=== PATIENT | female | born 1995 | race Caucasian/White ===

== ENCOUNTER → 2017-12-13 06:58 | Outpatient (CLI) | payer BC, SELFPAY ==
--- NOTE | 2017-12-13 09:59 | NEURO ---
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 The symptoms do awaken her from sleep and has symptoms with driving as well. She describes pain in the base of her thumbs bilaterally worse on the right side. The symptoms have improved since she is no longer working. Bilateral upper extremity sensory and motor nerve conduction study is performed. The median motor and sensory, ulnar motor and sensory and radial sensory responses are normal. The median and ulnar F-wave latencies are symmetrically preserved. Right upper extremity needle electromyography was performed. Muscles evaluated included the first dorsal interosseous, abductor pollicis brevis, brachioradialis, biceps, and triceps muscles as well as the deltoid muscles. Goals demonstrated normal insertional activity with absence of pathologic spontaneous activity. Motor unit potential recruitment pattern and amplitude was normal in all muscles tested. Impression: Normal electrophysiologic study of the upper extremities. There is no evidence of carpal tunnel, mononeuropathy or radiculopathy.
== END ==
PROVIDERS: Family Provider Family Medicine; PCP Family Medicine; Visit Provider Physician Assistant
DX: R20.2 Paresthesia of skin (principal)
CPT/HCPCS: 95886; 95912

== ENCOUNTER → 2019-09-13 16:24 | Outpatient (CLI) | payer OTHER, MEDICAID, SELFPAY ==
[2016-02-11 15:55] VITALS: BMI 29.0
[2019-09-13 17:35] LABS: Absolute Lymphocyte Count 2.73 X10^3/uL (0.83-4.51); Absolute Neutrophil Count 6.5 X10^3/uL (2.0-7.7); Basophil# 0.03 X10^3/uL; Basophil% 0.3 % (0-1); Eosinophil# 0.17 X10^3/uL; Eosinophils% 1.7 % (0-5); Hematocrit 38.4 % (37-47); Hemoglobin 12.5 g/dL (12.0-15.0); Lymphocyte # 2.73 X10^3/ul (4.0); Lymphocyte % 27.1 % (19-41); Mean Corp Hgb Conc 32.6 g/dL (32-36); Mean Corpuscular Hgb 26.7 pg (27.0-32.0); Mean Corpuscular Volume 82.1 fL (81-99); Mean Platelet Vol. 9.2 fl (6.2-12.0); Monocyte# 0.58 X10^3/uL; Monocyte% 5.8 % (0-10); NRBC Flagged by Analyzer 0 % (0-5); Neutrophil % 64.6 % (47-70); Platelet Count 312 K/mm3 (150-450); RBC Distribution Width SD 41.1 fl (35.1-43.9); Red Blood Count 4.68 M/mm3 (4.2-5.4); White Blood Count 10.1 K/mm3 (4.4-11.0)
[2019-09-13 17:40] LABS: Color, Urine Yellow (Yellow); Glucose, Dipstick Normal (Normal); Ketone-Dipstick Negative (Negative); Leukocyte Esterase-Dipstick Negative /ul (Negative); Nitrite-Dipstick Negative (Negative); Occult Blood-Urine Negative /ul (Negative); Protein-Dipstick Negative (Negative); Urine Bilirubin Dipstick Negative (Negative); Urine Clarity Clear (Clear); Urine Urobilinogen Normal (Normal)
[2019-09-13 17:49] LABS: Amphetamine Urine VISTA NEGATIVE (<1000 ng/mL); Barbiturate Urine VISTA NEGATIVE (< 200 ng/mL); Benzodiazepine Urine VISTA NEGATIVE (< 200 ng/mL); Cocaine Urine VISTA NEGATIVE (< 300 ng/mL); Ecstacy Urine VISTA NEGATIVE (< 500 ng/mL); Methadone Urine VISTA NEGATIVE (< 300 ng/mL); PCP Urine VISTA NEGATIVE (< 25 ng/mL); THC Urine VISTA NEGATIVE (< 50 ng/mL); Vista UDS pH Range 6
[2019-09-13 18:40] LABS: Thyroid Stim Hormone (TSH) 2.92 uIU/mL (0.358-3.74)
[2019-09-14 09:14] LABS: HIV - WCH Non-Reactive (Nonreactive); Hepatitis B Surface Antigen Non-Reactive (Nonreactive); Hepatitis C Antibody Non-Reactive (Nonreactive)
[2019-09-20 03:26] LABS: Prenatal RPR NONREACTIVE (NONREACTIVE)
== END ==
PROVIDERS: PCP Family Medicine; Visit Provider Obstetrics & Gynecology
DX: Z34.81 Encounter for supervision of other normal pregnancy, first trimester (principal)
CPT/HCPCS: 36415; 80307; 81002; 84443; 85025; 86703; 86762; 86803; 87340

== ENCOUNTER → 2020-01-17 15:21 | Outpatient (CLI) | payer MEDICAID, SELFPAY ==
[2016-02-11 15:55] VITALS: BMI 29.0
[2020-01-17 16:07] LABS: Hematocrit 36.1 % (37-47); Hemoglobin 11.8 g/dL (12.0-15.0); Mean Corp Hgb Conc 32.7 g/dL (32-36); Mean Corpuscular Hgb 28.3 pg (27.0-32.0); Mean Corpuscular Volume 86.6 fL (81-99); Mean Platelet Vol. 10.7 fl (6.2-12.0); Platelet Count 271 K/mm3 (150-450); RBC Distribution Width CV 13.4 % (11.6-14.6); RBC Distribution Width SD 41.8 fl (35.1-43.9); Red Blood Count 4.17 M/mm3 (4.2-5.4); White Blood Count 10.6 K/mm3 (4.4-11.0)
[2020-01-17 16:18] LABS: Glucose Challenge Gest 1H 50g 164 mg/dL (70-140)
== END ==
PROVIDERS: PCP Family Medicine; Visit Provider Obstetrics & Gynecology
DX: Z34.83 Encounter for supervision of other normal pregnancy, third trimester (principal)
CPT/HCPCS: 36415; 82950; 85027; 86850

== ENCOUNTER → 2020-01-23 09:53 | Outpatient (CLI) | payer MEDICAID, SELFPAY ==
[2020-01-23 12:12] LABS: Glucose GTT-Gestational 1 Hr 170 mg/dL (<190)
[2020-01-23 12:12] LABS: Glucose GTT-Gestation. Fasting 73 mg/dL (<105)
[2020-01-23 13:42] LABS: Glucose GTT-Gestational 3 Hr 153 L (<145)
[2020-01-23 14:03] LABS: Glucose GTT-Gestational 2 Hr 145 mg/dL (<165)
== END ==
PROVIDERS: Referring Provider Obstetrics & Gynecology; Visit Provider Obstetrics & Gynecology
DX: O24.912 Unspecified diabetes mellitus in pregnancy, second trimester (principal); Z3A.00 Weeks of gestation of pregnancy not specified
CPT/HCPCS: 36415; 82951; 82952

== ENCOUNTER 2020-03-07 16:35 | Outpatient (CLI) | payer MEDICAID, SELFPAY ==
[2016-02-11 15:55] VITALS: BMI 29.0
[2020-03-07 16:52] VITALS: BMI 32.5
--- NOTE | 2020-03-14 08:34 | OB.TRI.NOTE ---
- Problem List (1) 35 weeks gestation of Status: Acute (2) Decreased movement Status: Acute Qualifiers: Trimester: third trimester History of Present Illness Date of Service: 03/07/20 Was patient seen by the physician?: No Reason For Visit: DECREASED MOVEMENT Final MARCI: 04/06/20 Gestational age: 35 Weeks and 5 Days History of Present Illness: 24yo G1 @ 35 5/7wga with c/o decreased movement and spotting x 1. Allergies No Known Allergies Allergy (Verified 02/11/16 16:45) Physical Exam Vitals: vss NST - FHR Rate Baby A Baseline: 130 Variability:: Moderate Accelerations:: None Decelerations:: None NST Reactive:: Yes FHR Category:: Category I Uterine Activity:: 0/10 Impression/Plan Reactive NST, Cat I FHR -No bleeding or spotting per RN during observation period and pt reports improved movement -d/c home with FM precautions.
== END 2020-03-07 17:30 | disposition home or self-care (01) ==
PROVIDERS: Referring Provider Obstetrics & Gynecology; Visit Provider Obstetrics & Gynecology
DX: O36.8130 Decreased fetal movements, third trimester, not applicable or unspecified (principal); Z3A.35 35 weeks gestation of pregnancy
CPT/HCPCS: 59025; 59050; 99218; G0378

== ENCOUNTER → 2020-03-13 17:35 | Outpatient (CLI) | payer MEDICAID, SELFPAY ==
[2020-03-07 16:52] VITALS: BMI 32.5
== END ==
PROVIDERS: Referring Provider Obstetrics & Gynecology; Visit Provider Obstetrics & Gynecology
DX: Z36.85 Encounter for antenatal screening for Streptococcus B (principal)
CPT/HCPCS: 87077; 87081; 87186

== ENCOUNTER 2020-03-16 22:45 | Outpatient (CLI) | payer MEDICAID, SELFPAY ==
[2020-03-16 23:01] VITALS: BP 129/80; PULSE 85
[2020-03-16 23:04] VITALS: BMI 33.9
--- NOTE | 2020-03-17 05:40 | OB.TRI.NOTE ---
- Problem List (1) 37 weeks gestation of Status: Acute (2) Labor, false ([place]), antepartum Status: Acute History of Present Illness Date of Service: 03/16/20 Was patient seen by the physician?: No Reason For Visit: R/O LABOR Date of Service: 03/16/20 Final MARCI: 04/06/20 Final MARCI Source: US <20 weeks Gestational age: 37 Weeks and 1 Days Allergies No Known Allergies Allergy (Verified 03/16/20 23:20) Review of Systems Constitutional: Denies: Chills, Fever, Weight Change HEENT: Denies: Head Aches, Sinus Congestion, Sinus Drainage Cardiovascular: Denies: Chest Pain, Palpitations Respiratory: Denies: Cough, Shortness of breath at rest, Sputum production Gastrointestinal: Denies: Abdominal Pain, Nausea, Vomiting Genitourinary: Denies: Dysuria Musculoskeletal: Denies: Joint Pain, Joint Tenderness Skin: Denies: Rash, Wounds Neurological: Denies: Numbness, Tingling, Focal weakness Psychiatric: Denies: Anxiety, Depression, Homicidal Ideations, Suicidal Ideations Hematologic/ Lymphatic: Denies: Easy Bruising, Easy Bleeding Physical Exam Vitals: Vital Signs Pulse BP 85 129/80 H 03/16/20 23:01 03/16/20 23:01 General: Alert, Oriented x3, No apparent distress HEENT: Atraumatic, Normocephalic. 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 Negative for: Vulvar lesions Estimated gestational size: Appropriate for gestational size Presentation: Cephalic Cervix Dilation (cm): 2 Station: -3 Effacement (%): 50 NST - FHR Rate Baby A Baseline: 120 Variability:: Moderate Accelerations:: 15 x 15 Decelerations:: None NST Reactive:: Yes FHR Category:: Category I Uterine Activity:: 2 contractions in 71m Impression/Plan A/P: at 37 weeks gestation here to rule out labor On arrival SVE 2/50/-3 NST Category I Observed for 71m and only 2 UC noted States she would like to go home to await active labor To return if active labor begins or follow up in office as scheduled To discharge home
== END 2020-03-17 01:30 | disposition home or self-care (01) ==
LOC: WPOUT 22:47 → WP 22:47
PROVIDERS: Referring Provider Obstetrics & Gynecology; Visit Provider Obstetrics & Gynecology
DX: O47.03 False labor before 37 completed weeks of gestation, third trimester (principal); Z3A.37 37 weeks gestation of pregnancy
CPT/HCPCS: 59025; 59050; 99218; G0378

== ENCOUNTER 2020-03-27 22:36 | Outpatient (CLI) | payer MEDICAID, SELFPAY ==
[2020-03-27 23:04] VITALS: TEMP 36.2
[2020-03-27 23:05] VITALS: BP 136/86; PULSE 88
[2020-03-27 23:07] VITALS: BMI 33.2
[2020-03-27 23:19] LABS: Mucous, Urine 0 SEEN /hpf (<or=2+)
[2020-03-27 23:20] LABS: Color, Urine Yellow (Yellow); Glucose, Dipstick Normal (Normal); Ketone-Dipstick Negative (Negative); Leukocyte Esterase-Dipstick 500 /ul (Negative); Nitrite-Dipstick Negative (Negative); Occult Blood-Urine 10 /ul (Negative); Protein-Dipstick 15 mg/dl (Negative); Urine Bilirubin Dipstick Negative (Negative); Urine Clarity Sl. Cloudy (Clear); Urine Urobilinogen 1 mg/dl (Normal); Urine pH 6.5 (5.0 - 8.0)
[2020-03-27 23:41] LABS: Bacteria RARE /hpf (None Seen); Red Blood Cells-Urine 5-10 SEEN /hpf (0-5); Squamous Epithelial Cells - UA 0-5 SEEN /hpf (5-10); White Blood Cells 10-25 SEEN /hpf (0-5)
[2020-03-28 01:05] VITALS: BP 130/83; PULSE 78; TEMP 36.3
--- NOTE | 2020-03-29 11:44 | OB.TRI.NOTE ---
<Batool Butt - Last Filed: 03/29/20 11:44> - Problem List (1) 38 weeks gestation of Status: Acute (2) Labor, false ([place]), antepartum Status: Acute History of Present Illness Date of Service: 03/27/20 Was patient seen by the physician?: Yes Reason For Visit: R/O LABOR Date of Service: 03/27/20 Final MARCI: 04/06/20 Final MARCI Source: US <20 weeks Gestational age: 38 Weeks and 6 Days History of Present Illness: Presents to ER with consistent contractions every 20 minutes. Allergies No Known Allergies Allergy (Verified 03/16/20 23:20) Laboratory Studies: Laboratory Tests 03/27/20 Range/Units 23:00 Urine Color Yellow (Yellow) Urine Clarity Sl. Cloudy (Clear) Urine pH 6.5 (5.0 - 8.0) Ur Specific Gilbert 1.020 (1.002-1.030) Urine Protein 15 H (Negative) mg/dl Urine Glucose (UA) Normal (Normal) mg/dl Urine Ketones Negative (Negative) mg/dl Urine Occult Blood 10 H (Negative) /ul Urine Nitrite Negative (Negative) Urine Bilirubin Negative (Negative) mg/dL Urine Urobilinogen 1 H (Normal) mg/dl Ur Leukocyte Esterase 500 H (Negative) /ul Urine RBC 5-10 SEEN (0-5) /hpf Urine WBC 10-25 SEEN (0-5) /hpf Ur Squamous Epith Cells 0-5 SEEN (5-10) /hpf Urine Bacteria RARE (None Seen) /hpf Urine Mucus 0 SEEN (<or=2+) /hpf Review of Systems Constitutional: Denies: Chills, Fever, Weight Change HEENT: Denies: Head Aches, Sinus Congestion, Sinus Drainage Cardiovascular: Denies: Chest Pain, Palpitations Respiratory: Denies: Cough, Shortness of breath at rest, Sputum production Gastrointestinal: Denies: Abdominal Pain, Nausea, Vomiting Genitourinary: Denies: Dysuria Musculoskeletal: Denies: Joint Pain, Joint Tenderness Skin: Denies: Rash, Wounds Neurological: Denies: Numbness, Tingling, Focal weakness Psychiatric: Denies: Anxiety, Depression, Homicidal Ideations, Suicidal Ideations Hematologic/ Lymphatic: Denies: Easy Bruising, Easy Bleeding Physical Exam Vitals: Vital Signs Temp Pulse BP 97.4 F L 78 130/83 H 03/28/20 01:05 03/28/20 01:05 03/28/20 01:05 General: Alert, Oriented x3, No apparent distress HEENT: Atraumatic, Normocephalic. Negative for: Thyromegaly, Lymphadenopathy Cardiovascular: Regular rate, Regular Rhythm Lungs: Clear to auscultation Abdomen: Bowel Sounds Present, Gravid Neurological: Deep Tendon Reflexes 2+/4 and Symmetrical, Neuro grossly intact STATOR WINDER: Normal external genitalia. Negative for: Vulvar lesions Estimated gestational size: Appropriate for gestational size Presentation: Cephalic Cervix Dilation (cm): 2 Station: -3 Effacement (%): 50 NST - FHR Rate Baby A Baseline: 130 Variability:: Moderate Accelerations:: 15 x 15 Decelerations:: None, Early FHR Category:: Category I Uterine Activity:: Q15-30m irregular Impression/Plan A/P: at 38 weeks gestation here to rule out labor UC irregular, palpating mild, Q15-30m NST Category I SVE on admission 2/50/-3, after 2 hours 3/50/-3, after 6 hours remains 3/50/-3 Reports contractions ceased while here Educated on active labor and 5-1-1 To call triage line or return if contractions become more regular Discharge home and follow up in office <Gissell Stephenson - Last Filed: 03/30/20 19:53> History of Present Illness Laboratory Studies: Laboratory Tests 03/27/20 Range/Units 23:00 Urine Color Yellow (Yellow) Urine Clarity Sl. Cloudy (Clear) Urine pH 6.5 (5.0 - 8.0) Ur Specific Gilbert 1.020 (1.002-1.030) Urine Protein 15 H (Negative) mg/dl Urine Glucose (UA) Normal (Normal) mg/dl Urine Ketones Negative (Negative) mg/dl Urine Occult Blood 10 H (Negative) /ul Urine Nitrite Negative (Negative) Urine Bilirubin Negative (Negative) mg/dL Urine Urobilinogen 1 H (Normal) mg/dl Ur Leukocyte Esterase 500 H (Negative) /ul Urine RBC 5-10 SEEN (0-5) /hpf Urine WBC 10-25 SEEN (0-5) /hpf Ur Squamous Epith Cells 0-5 SEEN (5-10) /hpf Urine Bacteria RARE (None Seen) /hpf Urine Mucus 0 SEEN (<or=2+) /hpf Physical Exam Vitals: Vital Signs Temp Pulse BP 97.4 F L 78 130/83 H 03/28/20 01:05 03/28/20 01:05 03/28/20 01:05 Impression/Plan 25 you at 39/0, MARCI 04/06/20, presented to triage for rule out labor. Minimal cervical change to 3 cm. However variable decelerations noted on FHR monitoring. Admit for induction of labor at term for nonreassuring heart tones. complicated by ventriculomegaly (right last measuring 13mm, left 14 mm, third ventricle 4.6 mm with HC in 57%tile. EFW 3718 gm on 03/20). Pt had seen [facility] who recommended delivery route and timing for obstetrical indications. NO operative vaginal delivery. Baby should be evaluated by pediatrics prior to discharge and should follow up with pediatric neurology within 1 month (number [phone]). Induction of labor with pitocin, AROM when appropriate. Start PCN now for GBS prophylaxis.
== END 2020-03-28 04:40 | disposition home or self-care (01) ==
LOC: WPOUT 22:41 → WP 22:42
PROVIDERS: Referring Provider Obstetrics & Gynecology; Visit Provider Obstetrics & Gynecology
DX: O47.1 False labor at or after 37 completed weeks of gestation (principal); Z3A.38 38 weeks gestation of pregnancy
CPT/HCPCS: 59025; 59050; 81001; 99218; G0378

== ENCOUNTER 2020-03-30 15:40 | Inpatient (IN) | payer MEDICAID, SELFPAY ==
[2020-03-30] VITALS (10 sets, daily range): BP systolic 106–140; BP diastolic 56–95; PULSE 76–97; TEMP 36.4–37.2; O2SAT 97; BMI 33.1
[2020-03-30 15:13] LABS: ROM Internal Control Test YES-OK TO RESULT pt. (Internal QC); ROM Patient Test Negative (Negative)
[2020-03-30] MEDS: Lactated Ringers 1,000 ML 50 ML IV (16:30)
[2020-03-30] MEDS: Oxytocin 30 units/NS 500 ml 30 UNITS/500 ML IV.SOLN IV (16:50)
[2020-03-30 16:54] LABS: Absolute Lymphocyte Count 2.14 X10^3/uL (0.83-4.51); Absolute Neutrophil Count 10.8 X10^3/uL (2.0-7.7); Basophil# 0.03 X10^3/uL; Basophil% 0.2 % (0-1); Eosinophil# 0.12 X10^3/uL; Eosinophils% 0.9 % (0-5); Hematocrit 39.9 % (37-47); Hemoglobin 13.2 g/dL (12.0-15.0); Lymphocyte # 2.14 X10^3/ul (4.0); Lymphocyte % 15.5 % (19-41); Mean Corp Hgb Conc 33.1 g/dL (32-36); Mean Corpuscular Hgb 27.8 pg (27.0-32.0); Mean Platelet Vol. 9.9 fl (6.2-12.0); Monocyte# 0.64 X10^3/uL; Monocyte% 4.6 % (0-10); NRBC Flagged by Analyzer 0 % (0-5); Neutrophil # 10.82 X10^3/uL (2.7-7.7); Neutrophil % 78.4 % (47-70); Platelet Count 335 K/mm3 (150-450); RBC Distribution Width SD 39.8 fl (35.1-43.9); Red Blood Count 4.75 M/mm3 (4.2-5.4); White Blood Count 13.8 K/mm3 (4.4-11.0)
--- NOTE | 2020-03-30 17:03 | HP.PCM_ITS ---
<Batool Butt - Last Filed: 03/31/20 07:51> - Problem List (1) 39 weeks gestation of Status: Acute (2) Group beta Strep positive Status: Acute (3) macrocephaly affecting antepartum care of mother Status: Acute Qualifiers: Fetus number: single or unspecified fetus Qualified Code(s): O35.0XX0 - Maternal care for (suspected) central nervous system malformation in fetus, not applicable or unspecified (4) Cerebral ventriculomegaly, , affecting care of mother Status: Acute History Date of Admission: 03/30/20 Final MARCI: 04/06/20 Final MARCI Source: US <20 weeks Gestational age: 39 Weeks and 1 Days History of this : This is a 25 year-old, G [2], P [0], at 39.0 weeks gestational age. Allergies No Known Allergies Allergy (Verified 03/16/20 23:20) Home Medications: Home Medications Vits [Prenatabs FA ] 1 tab PO DAILY 03/07/20 Smoking Status: Never smoker Alcohol: None Number of Fetus(es): 1 NST - FHR Rate Baby A Baseline: 130 Variability:: Moderate Accelerations:: 15 x 15 Decelerations:: Variable NST Reactive:: Yes FHR Category:: Category II Uterine Activity:: quiet History Past Pregnancies: Past Pregnancies PRIOR DELIVERY HISTORY DEL DATE GEST LAB WT LB WT OZ TYPE ANES LABOR TX December 17 6 0 0 0 Ectop General No Labs: Mom's Problem List Problem Status Onset Code 39 weeks gestation of Acute Z3A.39 Group beta Strep positive Acute B95.1 macrocephaly affecting antepartum care of mother Acute O35.0XX0 Cerebral ventriculomegaly, , affecting care of mother Acute O35.0XX0 Mom's Labs & Results 03/30/20 03/30/20 03/30/20 14:40 16:30 16:30 WBC 13.8 H RBC 4.75 Hgb 13.2 Hct 39.9 MCV 84.0 MCH 27.8 MCHC 33.1 RDW Std Deviation 39.8 RDW Coeff of Susan 13.0 Plt Count 335 MPV 9.9 Immature Gran % (Auto) 0.400 Neut % (Auto) 78.4 H Lymph % (Auto) 15.5 L Hodgeman % (Auto) 4.6 Eos % (Auto) 0.9 Baso % (Auto) 0.2 Absolute Neuts (auto) 10.8 H Absolute Lymphs (auto) 2.14 Nucleated RBC % 0 Vag Amniotic Fld Detect Negative Blood Type A NEGATIVE Antibody Screen NEGATIVE Course Did the patient receive Yes care? Labs Blood Type: A RH: NEGATIVE RPR/VDRL/Syphilis Nonreactive Rubella status Immune HbSAg Negative Date Done: 09/13/19 Chlamydia Negative Gonorrhea Negative HIV/AIDS Non-Reactive Group B Strep: Positive Current Obstetrical History Gestational Diabetes No Incompetent Cervix No Infertility No IUGR No Macrosomia No Hypertension/Pre-eclampsia No Placenta Previa/Abruption No PTL/PROM No Uterine anomaly No Oligohydramnios No Polyhydramnios No Multiple gestation No Past Medical History Asthma No Diabetes No Hypertension No Heart disease No Mitral valve prolapse No Neurologic/Seizure disorder/ No Migraines Kidney disease No Liver disease No Varicosities No Clotting disorders/Hx of DVT No Thyroid Dysfunction No Other medical diseases No Psychiatric disorders Yes: anxiety Major trauma No Abnormal PAP smear No Sleep apnea No Mammogram in the last 2 years No Social History Marital Status: SINGLE Alleged father Ramón Bejarano Hx Smoking Yes Smoking Status Never smoker Expected Delivery Method: Spontaneous Vaginal Number of Visits: 10 Review of Systems Constitutional: Denies: Chills, Fever, Weight Change HEENT: Denies: Head Aches, Sinus Congestion, Sinus Drainage Cardiovascular: Denies: Chest Pain, Palpitations Respiratory: Denies: Cough, Shortness of breath at rest, Sputum production Gastrointestinal: Denies: Abdominal Pain, Nausea, Vomiting Genitourinary: Denies: Dysuria Musculoskeletal: Denies: Joint Pain, Joint Tenderness Skin: Denies: Rash, Wounds Neurological: Denies: Numbness, Tingling, Focal weakness Psychiatric: Denies: Anxiety, Depression, Homicidal Ideations, Suicidal Ideations Hematologic/ Lymphatic: Denies: Easy Bruising, Easy Bleeding Physical Exam Vitals: Vital Signs Temp Pulse BP 99.0 F 97 122/93 H 03/30/20 16:46 03/30/20 16:45 03/30/20 16:45 General: Alert, Oriented x3, No apparent distress HEENT: Atraumatic, Normocephalic. 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 Negative for: Vulvar lesions Estimated gestational size: Appropriate for gestational size Presentation: Cephalic Cervix Dilation (cm): 3 Station: -2 Effacement (%): 60 Assessment/Plan All Active Problems (Last Updated 03/31/20 @ 07:53 by Batool Butt CNM) 35 weeks gestation of (Acute) Decreased movement (Acute) 37 weeks gestation of (Acute) Labor, false ([place]), antepartum (Acute) 38 weeks gestation of (Acute) 39 weeks gestation of (Acute) Group beta Strep positive (Acute) macrocephaly affecting antepartum care of mother (Acute) Cerebral ventriculomegaly, , affecting care of mother (Acute) A/P: This is a 25 year-old, G [2], P [0], at 39 weeks gestational age. In to rule out ROM with ROM+ negative NST Category II In consultation with attending Dr. Joselito Stephenson, decision to admit patient for IOL Pitocin induction GBS+ with PCN coverage, to start with active labor SVE /-2 diagnosis complicating of macrocephaly and mild ventriculomegaly with dangling choroids Expect <Gissell Stephenson - Last Filed: 03/31/20 09:07> History History of this : This is a 25 year-old, G [], P [], at 39 weeks gestational age. Allergies No Known Allergies Allergy (Verified 03/16/20 23:20) History Past Pregnancies: Past Pregnancies Delivery Date Name GA/ Weeks Outcome Route Wt Infant Sex Labor Length Anesthesia Delivery Location Provider FOB Physical Exam Vitals: Vital Signs Temp Pulse BP Pulse Ox 98.0 F 76 133/70 H 82 03/31/20 07:31 03/31/20 08:17 03/31/20 08:17 03/31/20 05:13 Assessment/Plan 25 yo at 39/0w induction of labor at term for nonreassuring heart tones secondary to variable decelerations while in triage. complicated by ventriculomegaly (right 13 mm, left 14 mm, third ventricle 4.6 mm). HC in the 57%tile, EFW 3718 g (83%tile) as of 03/20/20 US. Patient has seen [facility] who recommended delivery timing and route based on obstetric indications. NO operative delivery. Placenta to be sent to pathology, pediatric evaluation prior to discharge and pediatric neurology follow up within 1 month of delivery. Induction of labor with pitocin. GBS positive, for penicillin which was started on admission.
[2020-03-30] MEDS: Lactated Ringers 500 ML 999 ML IV (23:48)
[2020-03-31] VITALS (54 sets, daily range): BP systolic 105–139; BP diastolic 55–86; PULSE 69–103; RESP 15–20; TEMP 36.4–36.8; O2SAT 82–100
--- NOTE | 2020-03-31 07:52 | PCM.PN.OB ---
<Batool Butt - Last Filed: 03/31/20 07:52> Patient Problems: Active and Suspected Problems (Last Updated 03/31/20 @ 07:53 by Batool Butt CNM) 39 weeks gestation of (Acute) Group beta Strep positive (Acute) macrocephaly affecting antepartum care of mother (Acute) Cerebral ventriculomegaly, , affecting care of mother (Acute) Subjective: Not feeling any contraction or pain at all. Was able to sleep some overnight. Objective: VSS. FHR baseline 130, +accels, -decels, moderate variability. SVE 3.5-4/60/-2. UC Q5-8m irregular with Pitocin turned up to 6. - Physical Exam Vitals/I&O's: Vital Signs Temp Pulse BP Pulse Ox 98.0 F 82 111/69 82 03/31/20 07:31 03/31/20 07:32 03/31/20 07:32 03/31/20 05:13 Weight: 93.2 kg Body Mass Index (BMI) 33.1 Intake and Output for Last 24 Hours 03/29/20 03/30/20 03/31/20 23:59 23:59 23:59 Intake Total 537.53 / 537.53 885.43 / 885.43 Balance 537.53 / 537.53 885.43 / 885.43 General: Alert, Oriented x3, Cooperative HEENT: Atraumatic, PERRLA, EOMI, Normocephalic Neck: Supple, No JVD, Negative Carotid Bruits Lungs: Clear to auscultation, Normal air movement Cardiovascular: Regular rate, No murmurs Abdomen: Bowel Sounds Present, Soft, Non Tender Extremities: No edema, Capillary Refill Less than 3 Seconds Skin: No rashes, No breakdown Musculoskeletal: No Tenderness to Palpation of Joints or Extremities Neurological: Cranial nerves II-XII grossly intact Psych/Mental Status: Normal Affect, Appropriate Laboratory Results 03/30/20 14:40: Vag Amniotic Fld Detect Negative 03/30/20 16:30: WBC 13.8 H, RBC 4.75, Hgb 13.2, Hct 39.9, MCV 84.0, MCH 27.8, MCHC 33.1, RDW Std Deviation 39.8, RDW Coeff of Susan 13.0, Plt Count 335, MPV 9.9, Immature Gran % (Auto) 0.400, Neut % (Auto) 78.4 H, Lymph % (Auto) 15.5 L, Morrison % (Auto) 4.6, Eos % (Auto) 0.9, Baso % (Auto) 0.2, Absolute Neuts (auto) 10.8 H, Absolute Lymphs (auto) 2.14, Nucleated RBC % 0 03/30/20 16:30: Blood Type A NEGATIVE, Antibody Screen NEGATIVE Current Medications Acetaminophen (Tylenol) 325 - 650 mg PO Q4H PRN PRN PRN Reason: Pain Score 1-3/10 Al Hydroxide/Mg Hydroxide (Mylanta Ii) 15 - 30 ml PO Q4H PRN PRN PRN Reason: INDIGESTION Citric Acid/Sodium Citrate (Bicitra) 30 ml PO X1 PRN PRN Reason: Section Fentanyl Citrate (Sublimaze (100mcg Ampule)) 25 - 50 mcg IV Q2H PRN PRN PRN Reason: Pain Score 4-10/10 Oxytocin/Sodium Chloride () 30 units in 500 mls @ 2 mls/hr IV .Q250H COUNTS INCLUDE 234 BEDS AT THE [facility] Last Infusion: 03/31/20 07:39 Dose: 8 mls/hr Documented by: Lactated Ringer's () 500 mls @ 999 mls/hr IV .Q31M PRN PRN Reason: Epidural Lactated Ringer's () 500 mls @ 999 mls/hr IV .Q31M PRN PRN Reason: Corrective Measures Last Infusion: 03/31/20 00:19 Dose: Infused Documented by: Lactated Ringer's () 1,000 mls @ 50 mls/hr IV .Q20H COUNTS INCLUDE 234 BEDS AT THE [facility] Last Infusion: 03/31/20 06:37 Dose: 50 mls/hr Documented by: Penicillin G Potassium/Dextrose (Penicillin G Potassium) 3 mu in 50 mls @ 100 mls/hr IV Q4H COUNTS INCLUDE 234 BEDS AT THE [facility] Last Infusion: 03/31/20 06:37 Dose: Infused Documented by: Ondansetron HCl (Zofran) 4 mg IV Q4H PRN PRN PRN Reason: NAUSEA Prochlorperazine Edisylate (Compazine Iv) 10 mg IV Q6H PRN PRN PRN Reason: NAUSEA Sodium Chloride () 10 - 40 ml IV X1 PRN PRN Reason: SALINE FLUSH Medical Necessity - Tobacco Use Smoking Status: Never smoker Assessment/Plan All Active Problems (Last Updated 03/31/20 @ 07:53 by Batool Butt CNM) 35 weeks gestation of (Acute) Decreased movement (Acute) 37 weeks gestation of (Acute) Labor, false ([place]), antepartum (Acute) 38 weeks gestation of (Acute) 39 weeks gestation of (Acute) Group beta Strep positive (Acute) macrocephaly affecting antepartum care of mother (Acute) Cerebral ventriculomegaly, , affecting care of mother (Acute) A/P: at 39.1 weeks, Pitocin IOL Pitocin turned off overnight for variables. Bolus given and Pitocin restarted. Pitocin just turned up to 6 SVE unchanged 3.5-4/60/-2 UC Q5-8m irregular NST Category I Would like to go unmedicated. Reviewed if needing a section the options are spinal or general anesthesia where she would be put to sleep. States understanding. Dr. Reji Stephenson attending updated on POC To continue Pitocin IOL and watch tolerance <Gissell Stephenson - Last Filed: 03/31/20 09:03> - Physical Exam Vitals/I&O's: Vital Signs Temp Pulse BP Pulse Ox 98.0 F 76 133/70 H 82 03/31/20 07:31 03/31/20 08:17 03/31/20 08:17 03/31/20 05:13 Weight: 93.2 kg Body Mass Index (BMI) 33.1 Intake and Output for Last 24 Hours 03/29/20 03/30/20 03/31/20 23:59 23:59 23:59 Intake Total 537.53 / 537.53 993.43 / 993.43 Output Total 900 / 900 Balance 537.53 / 537.53 93.43 / 93.43 Laboratory Results 03/30/20 14:40: Vag Amniotic Fld Detect Negative 03/30/20 16:30: WBC 13.8 H, RBC 4.75, Hgb 13.2, Hct 39.9, MCV 84.0, MCH 27.8, MCHC 33.1, RDW Std Deviation 39.8, RDW Coeff of Susan 13.0, Plt Count 335, MPV 9.9, Immature Gran % (Auto) 0.400, Neut % (Auto) 78.4 H, Lymph % (Auto) 15.5 L, Morrison % (Auto) 4.6, Eos % (Auto) 0.9, Baso % (Auto) 0.2, Absolute Neuts (auto) 10.8 H, Absolute Lymphs (auto) 2.14, Nucleated RBC % 0 03/30/20 16:30: Blood Type A NEGATIVE, Antibody Screen NEGATIVE Current Medications Acetaminophen (Tylenol) 325 - 650 mg PO Q4H PRN PRN PRN Reason: Pain Score 1-3/10 Al Hydroxide/Mg Hydroxide (Mylanta Ii) 15 - 30 ml PO Q4H PRN PRN PRN Reason: INDIGESTION Citric Acid/Sodium Citrate (Bicitra) 30 ml PO X1 PRN PRN Reason: Section Fentanyl Citrate (Sublimaze (100mcg Ampule)) 25 - 50 mcg IV Q2H PRN PRN PRN Reason: Pain Score 4-10/10 Oxytocin/Sodium Chloride () 30 units in 500 mls @ 2 mls/hr IV .Q250H COUNTS INCLUDE 234 BEDS AT THE [facility] Last Infusion: 03/31/20 08:39 Dose: 10 mls/hr Documented by: Lactated Ringer's () 500 mls @ 999 mls/hr IV .Q31M PRN PRN Reason: Epidural Lactated Ringer's () 500 mls @ 999 mls/hr IV .Q31M PRN PRN Reason: Corrective Measures Last Infusion: 03/31/20 00:19 Dose: Infused Documented by: Lactated Ringer's () 1,000 mls @ 50 mls/hr IV .Q20H COUNTS INCLUDE 234 BEDS AT THE [facility] Last Infusion: 03/31/20 06:37 Dose: 50 mls/hr Documented by: Penicillin G Potassium/Dextrose (Penicillin G Potassium) 3 mu in 50 mls @ 100 mls/hr IV Q4H COUNTS INCLUDE 234 BEDS AT THE [facility] Last Infusion: 03/31/20 06:37 Dose: Infused Documented by: Ondansetron HCl (Zofran) 4 mg IV Q4H PRN PRN PRN Reason: NAUSEA Prochlorperazine Edisylate (Compazine Iv) 10 mg IV Q6H PRN PRN PRN Reason: NAUSEA Sodium Chloride () 10 - 40 ml IV X1 PRN PRN Reason: SALINE FLUSH Assessment/Plan at 39/1 continued induction of labor with pitocin. Little cervical change overnight, cervical exam as above per CNM. status currently reassuring. Discussed if baby does not tolerate pitocin and there is no cervical change our alternative is a section. Will continue induction at this time with close monitoring.
[2020-03-31] MEDS: Lactated Ringers 500 ML 999 ML IV ×2 (10:37→11:20)
[2020-03-31] MEDS: fentaNYL-bupivacaine (epidural) 100 ML BAG EPIDURAL (11:33)
--- NOTE | 2020-03-31 12:54 | PCM.PN.BLA ---
Progress Note CE unchanged /-2, IUPC placed. Cat II tracing with intermittent variable decelerations. Pitocin turned off. Pt had been given IVF boluses. Epidural in place. COntinued surveillance. STROKE Vital Signs/Narrative: Vital Signs Temp Pulse BP Pulse Ox 03/31/20 12:25 76 113/66 03/31/20 12:24 97.5 F L 94 03/31/20 11:56 82 124/76 H 03/31/20 11:53 71 100 03/31/20 11:50 83 119/77 03/31/20 11:48 82 99 03/31/20 11:47 78 121/70 H 03/31/20 11:45 74 123/71 H 03/31/20 11:43 83 99 03/31/20 11:40 75 126/74 H 03/31/20 11:38 76 98 03/31/20 11:36 73 118/72 03/31/20 11:33 76 99 03/31/20 11:30 85 132/84 H 03/31/20 11:29 78 86 03/31/20 11:28 76 100 03/31/20 11:26 78 131/76 H 03/31/20 11:23 76 99 03/31/20 11:21 77 139/82 H 03/31/20 11:18 75 99 03/31/20 11:16 72 130/84 H 03/31/20 11:13 72 99 03/31/20 11:02 76 125/83 H 03/31/20 09:47 75 123/80 H 03/31/20 09:46 98.2 F
[2020-03-31] MEDS: Lactated Ringers 1,000 ML 200 ML IV (13:17)
[2020-03-31] MEDS: Sodium Citrate/Citric Acid 30 ML UDC PO (13:22)
[2020-03-31] MEDS: Cefazolin 2 GM in 0.9% Normal Saline 100 ML IV (13:29)
--- NOTE | 2020-03-31 13:52 | PLAC_PTH ---
PATIENT: SOFI REYNOLDS LOC: [facility] U#:[id number] AGE/SX: 25/F ROOM: WP007 RE03/30/[address]: Dr. Gissell Stephenson DO : 1995 BED: 1 DIS: 04/02/2020 SPEC #: [id number] RECD: 04/01/20 09:18 STATUS: KRISTIE MARICRUZ #: [id number] BRENDEN: 03/31/20 13:[address]: Gissell Stephenson DEPT: SURGICAL PATHOLOGY RECD BY: Ray Bray ENTERED: 04/01/20 09:18 SP TYPE: PLACENTA OTHR DR: No Primary Care Phys Tissues: Placenta, NOS Procedures: Surgery Specimen Level V HEADER OPERATION: Primary section PRE-OP DIAGNOSIS: Labor TISSUE SUBMITTED: Placenta MICROSCOPIC DIAGNOSIS Placenta: Placental disc - third trimester placenta (472 gm). - Focal areas of infarction (3 cm in greatest dimension). - Focal area of intraparenchymal hemorrhage. - Focal intervillous and perivillous fibrin deposition - Focal villous congestion and hemorrhage. Membranes - no pathologic diagnosis. Umbilical cord - three blood vessels and no pathologic diagnosis. SJ:alfonso 04/03/20 MICROSCOPIC DESCRIPTION Slides are reviewed. GROSS DESCRIPTION SPECIMEN: PLACENTA / CLINICAL INFORMATION: A. Weight: 3.46 kg B. Gestational Age: 39 weeks C. Sex: Female PLACENTAL WEIGHT (POST FIXATION): 472 gm PLACENTAL DIMENSIONS: 20 x 20 x 2.5 cm PLACENTAL SHAPE: Usual ovoid PLACENTAL WEIGHT FOR GESTATIONAL AGE: Within 10-99th percentile MEMBRANES - Present A. Insertion: Marginal B. Site of rupture from edge: 8 cm from edge of placental disc C. Color of membrane: Ross-mucoidy D. Abnormalities: None UMBILICAL CORD - Present A. Color: Ross-banerjee B. Insertion: Paracentral C. Length: 29 cm D. Diameter: 1.5 cm E. Number of vessels: Three F. Abnormalities: None PLACENTAL DISC - Present A. Color of surface: Ross-banerjee B. surface abnormalities: None C. Maternal cotyledons: Intact with minimal tears D. Attached retro placental clot: No clot E. Cut surface: Dark red and spongy F. Lesions: Sections reveal five, variably sized ross, indurated to hemorrhagic areas measuring 0.5 to 3 cm in greatest dimension. G. Separate clot: Absent SECTIONS SUBMITTED: 1. Membrane roll 2. Cord, maternal end, lesion 3. Cord, end, lesion 4. Placental disc, and maternal surfaces, lesion 5. Placental disc, and maternal surfaces, lesion 6. Placental disc, and maternal surfaces, lesion SJ:rg 04/02/20 TC:5 CPT: 96180
--- NOTE | 2020-03-31 14:33 | OP.PCM_ITS ---
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 Patient progressed through labor dilating from 3 to 4 cm and had spontaneous rupture of membranes. However Pitocin was unable to be increased for augmentation due to intolerance. Decision was made for primary section. All risks, benefits, alternatives were discussed with the patient. Risks include but are not limited to: Risk of bleeding to the point of transfusion, infection, injury to surrounding tissue including bowel and bladder requiring prolonged Adams catheter use, VTE, ICU admission. Patient aware and consented. All questions answered. Surgeon: Gissell Stephenson DO Description of Procedure: Patient was taken to the operating room and placed in the dorsal supine position with a left lateral tilt. Patient had epidural in place. Prepped and draped in the usual sterile fashion. Pfannenstiel skin incision made with scalpel and carried down through underlying subcutaneous tissue. Fascia nicked on either side of the midline and extended bilaterally with Morrison scissors. Kyle clamps placed on the superior fascial edge which was tented up and underlying rectus muscles are dissected dissected off bluntly and sharply at midline. Kyle clamps removed to the inferior fascial edge which was tented up and the rectus muscles were dissected off in the same manner. Peritoneum grasped with hemostats and incised with Metzenbaum scissors. Extended bluntly. Bladder blade placed. Vesicouterine peritoneum identified and bladder flap created. Low transverse uterine incision made with scalpel and extended bluntly. Clear amniotic fluid. Hand placed into the uterus and with the assistance of gentle fundal pressure head was delivered followed by body. Nuchal cord x1 was noted, loose, reduced. Head was noted to be in an asynclitic lie. Cord was clamped and cut. Baby handed to nursing. Spontaneous delivery of placenta. Uterus was exteriorized and cleared of all clots. Hysterotomy closed with running locking stitch followed by a second vertical imbricating suture. Hemostatic. Uterus was replaced into the abdomen, hysterotomy was noted to be hemostatic. Per itoneum closed in a running fashion. Fascia closed with a running stitch. Subcutaneous tissue closed with running stitch. Skin closed with a running subcuticular stitch. At the end of the procedure all needle, lap, sponge counts were correct x3. Specimen(s) sent to pathology: Placenta Cord Entanglement: Around neck x 1, loose Cord Vessel Description: 3 Vessels Infant Gender: Female (1 minute): 9 (5 minute): 9 Delayed cord clamping: Yes Antibiotic Given: Ancef 2 grams IV x1, Zithromax 500 mg/5 mL X1
[2020-03-31] MEDS: Oxytocin 30 units/NS 500 ml 30 UNITS/500 ML IV.SOLN 167 UNITS IV (14:45)
[2020-03-31] MEDS: Acetaminophen 500 MG Tablet 1000 MG PO ×2 (16:02→21:57)
[2020-03-31] MEDS: Lactated Ringers 1,000 ML 100 ML IV (17:47)
[2020-03-31] MEDS: 0.9% Saline Lock 10 ML Syringe IV (20:06)
[2020-03-31] MEDS: Ketorolac 30 MG/ML Syringe IV (20:06)
[2020-04-01] VITALS (7 sets, daily range): BP systolic 103–120; BP diastolic 56–73; PULSE 72–90; RESP 16–18; TEMP 36.2–36.7; O2SAT 96–98
[2020-04-01] MEDS: Ketorolac 30 MG/ML Syringe IV ×3 (02:26→14:36)
[2020-04-01] MEDS: 0.9% Saline Lock 10 ML Syringe IV ×3 (02:26→14:35)
[2020-04-01] MEDS: Acetaminophen 500 MG Tablet 1000 MG PO ×4 (04:07→22:19)
[2020-04-01 04:31] LABS: Hematocrit 29.9 % (37-47); Hemoglobin 9.8 g/dL (12.0-15.0); Mean Corp Hgb Conc 32.8 g/dL (32-36); Mean Corpuscular Volume 85.4 fL (81-99); Platelet Count 251 K/mm3 (150-450); RBC Distribution Width CV 13.2 % (11.6-14.6); RBC Distribution Width SD 41.2 fl (35.1-43.9); White Blood Count 12.3 K/mm3 (4.4-11.0)
--- NOTE | 2020-04-01 08:37 | PN.OBGYN_ITS ---
Patient Problems: Active and Suspected Problems (Last Updated 03/31/20 @ 07:53 by Batool Butt CNM) 39 weeks gestation of (Acute) Group beta Strep positive (Acute) macrocephaly affecting antepartum care of mother (Acute) Cerebral ventriculomegaly, , affecting care of mother (Acute) Subjective: Was able to get out of bed about 0100 this AM. Has been ambulating in her room. Urinating well and passing flatus. Tolerating a regular diet. Pain well controlled with IV Toradol. Would like to go home tomorrow. Objective: VSS. Fundus is firm, midline, u/1. Lochia rubra moderate. Dressing dry and intact. - Physical Exam Vitals/I&O's: Vital Signs Temp Pulse Resp BP Pulse Ox 97.2 F L 80 16 103/56 L 96 04/01/20 04:10 04/01/20 04:10 04/01/20 04:10 04/01/20 04:10 04/01/20 01:10 Oxygen Delivery Method Room Air Weight: 93.2 kg Body Mass Index (BMI) 33.1 Intake and Output for Last 24 Hours 03/30/20 03/31/20 04/01/20 23:59 23:59 23:59 Intake Total 537.53 / 537.53 3667.31 / 3667.31 773.33 / 773.33 Output Total 1550 / 1550 700 / 700 Balance 537.53 / 537.53 2117.31 / 2117.31 73.33 / 73.33 General: Alert, Oriented x3, Cooperative HEENT: Atraumatic, PERRLA, EOMI, Normocephalic Neck: Supple, No JVD, Negative Carotid Bruits Lungs: Clear to auscultation, Normal air movement Cardiovascular: Regular rate, No murmurs Abdomen: Bowel Sounds Present, Soft, Non Tender, Hypoactive Bowel Sounds - dressing, - Extremities: No edema, Capillary Refill Less than 3 Seconds, - Skin: No rashes, No breakdown, Incision - dressing CDI Musculoskeletal: No Tenderness to Palpation of Joints or Extremities Neurological: Cranial nerves II-XII grossly intact Psych/Mental Status: Normal Affect, Appropriate Laboratory Results 03/31/20 16:00: Screen NEGATIVE, Baby's Blood Type O POSITIVE, Baby's [place] NEGATIVE 04/01/20 04:00: WBC 12.3 H, RBC 3.50 L, Hgb 9.8 L, Hct 29.9 L, MCV 85.4, MCH 28.0, MCHC 32.8, RDW Std Deviation 41.2, RDW Coeff of Susan 13.2, Plt Count 251, MPV 10.0 Current Medications Acetaminophen (Tylenol) 1,000 mg PO Q6H [facility] Last Admin: 04/01/20 04:07 Dose: 1,000 mg Documented by: Bisacodyl (Dulcolax) 10 mg RECTAL UD PRN PRN Reason: If no BM Hydrocortisone (Hytone) 1 applic TOPICAL TID PRN PRN; Protocol PRN Reason: Discomfort Ibuprofen (Motrin) 600 mg PO Q6H [facility] Ketorolac Tromethamine (Toradol (Bkc)) 30 mg IV Q6H [facility] Stop: 04/01/20 14:01 Last Admin: 04/01/20 02:26 Dose: 30 mg Documented by: Methylergonovine Maleate (Methergine) 0.2 mg IM X1 PRN PRN Reason: Uterine Atony Ondansetron HCl (Zofran) 4 mg IV Q4H PRN PRN PRN Reason: Nausea Prochlorperazine Edisylate (Compazine Iv) 10 mg IV Q6H PRN PRN PRN Reason: NAUSEA Senna/Docusate Sodium (Senokot-S, Sara-Colace) 0 tablet PO DAILY [facility] Simethicone (Mylicon) 80 mg PO PCHS PRN PRN Reason: Indigestion/stomach pain Medical Necessity - Tobacco Use Smoking Status: Never smoker Assessment/Plan All Active Problems (Last Updated 03/31/20 @ 07:53 by Batool Butt CNM) 35 weeks gestation of (Acute) Decreased movement (Acute) 37 weeks gestation of (Acute) Labor, false (Jett-Mina), antepartum (Acute) 38 weeks gestation of (Acute) 39 weeks gestation of (Acute) Group beta Strep positive (Acute) macrocephaly affecting antepartum care of mother (Acute) Cerebral ventriculomegaly, , affecting care of mother (Acute) A/P: POD #1 Primary Section for intolerance of labor Normal involution and course Pain well controlled mother Dyad stable To continue postop orders Expect discharge tomorrow
[2020-04-01] MEDS: Senna/Docusate Sodium 1 Tablet PO (10:28)
[2020-04-01] MEDS: Ibuprofen 600 MG Tablet PO (19:59)
[2020-04-02] MEDS: Ibuprofen 600 MG Tablet PO ×2 (02:26→08:52)
[2020-04-02 02:30] VITALS: BP 114/69; PULSE 86; RESP 14; TEMP 36.2; O2SAT 96
[2020-04-02] MEDS: Acetaminophen 500 MG Tablet 1000 MG PO ×2 (04:21→10:31)
--- NOTE | 2020-04-02 07:47 | DCINST_ITS ---
Discharge Diet: No Restrictions Discharge Activity: May Not Drive - for 2 weeks or while taking narcotic pain meds., May Shower, May Take a Tub Bath - in 7 days. May resume sexual activity in: 4-6 weeks Lifting Restrictions: 20 pounds Additional Activity Instructions:: Nothing in the vagina for 4-6 weeks. You may return to work/school in 6 weeks. Call your doctor if your incision/area has: Continuous Slow Oozing, Sudden Increased Bleeding, Increased Pain/ Swelling, Increased Redness, Foul Smelling Discharge Call your doctor if you observe: Fever of 101 or Higher Suture Line Care: Avoid Pulling/Pushing, Avoid Pinching/Bending Remove Dressing in (days):: 5 Cleanse incision/area with: Soap & Water Additional Instructions: If you experience any of the following, contact your healthcare provider. * Bleeding that soaks a pad every hour for 2 hours * Fever 100.4 or higher * Unrelieved incision or abdominal pain * Swelling, redness, discharge or bleeding from your incision or episiotomy site * Your incision begins to separate * Problems urinating (including inability to urinate or burning while urinating). * Visual changes * Severe headache * Flu-like symptoms * Pain or redness in one of both of your breasts * Pain, warmth, tenderness or swelling in your legs, especially the calf area * Frequent nausea and vomiting * Symptoms of depression or anxiety If you experience any of the following, call 911 or go to the nearest Emergency Room. * Chest pain * Problems breathing * Seizure activity * Partial or complete paralysis of a body part, slurred speech, weakness or drooping of the face, or a sudden inability to walk or hold your balance Allergies/Adverse Reactions: Allergies No Known Allergies Allergy (Verified 03/16/20 23:20) Medications to take at Discharge Vits [Prenatabs FA ] 1 tab PO DAILY 03/07/20 Docusate Sodium 250 mg PO BID PRN PRN 30 Days #30 cap 04/02/20 Oxycodone [Oxyir] 5 mg PO Q6H PRN PRN 3 Days #10 tab 04/02/20 The following prescriptions were given: Docusate Sodium 250 mg PO BID PRN PRN 30 Days #30 cap PRN Reason: Constipation Prescription Printed Oxycodone [Oxyir] 5 mg PO Q6H PRN PRN 3 Days #10 tab PRN Reason: Pain Score 6-10/10 Prescription Printed Follow-Up: Call to make an appointment with your doctor for an incision check in 1-2 weeks. You will also need a 6 week post- follow up appointment. Test results from this visit will be discussed in further detail at your follow- up appointment, if applicable. Please Follow Up With: Jaun eTrrell MD When: 1-2 week incision check, 6 week Primary Care Physician: Care Physician,No Primary [Primary Care Provider] -
--- NOTE | 2020-04-02 07:48 | PCM.DC.SUM ---
Discharge Date and Diagnosis - Problem List Patient Problems: Active and Suspected Problems (Last Updated 03/31/20 @ 07:53 by Batool Butt CNM) 39 weeks gestation of (Acute) Group beta Strep positive (Acute) macrocephaly affecting antepartum care of mother (Acute) Cerebral ventriculomegaly, , affecting care of mother (Acute) Date of Admission: 03/30/20 Date of Discharge: 04/02/20 - Primary Discharge Diagnosis Acute Problems: Active Problems (Last Updated 03/31/20 @ 07:53 by Batool Butt CNM) 39 weeks gestation of (Acute) Group beta Strep positive (Acute) macrocephaly affecting antepartum care of mother (Acute) Cerebral ventriculomegaly, , affecting care of mother (Acute) Hospital Course and Treatment Consultations 03/30/20 16:01 Consult: Anesthesia Routine Comment: Reason For Exam: Labor Operations: - - primary section Summary of Care Provided: The patient is a 25 year old F [] Patient Problems: Active and Suspected Problems (Last Updated 03/31/20 @ 07:53 by Batool Butt CNM) 39 weeks gestation of (Acute) Group beta Strep positive (Acute) macrocephaly affecting antepartum care of mother (Acute) Cerebral ventriculomegaly, , affecting care of mother (Acute) Subjective: Feeling well with mild cramping. Pain is well controlled with Ibuprofen and Tylenol. Has been ambulating well. Urinating without difficulty and passing flatus. Tolerating a regular diet. is going good now with shield. Would like to discharge home today. Objective: VSS. Fundus is firm, midline, u/1. Lochia rubra light. Incision CDI - Physical Exam Vitals/I&O's: Vital Signs Temp Pulse Resp BP Pulse Ox 97.1 F L 86 14 114/69 96 04/02/20 02:30 04/02/20 02:30 04/02/20 02:30 04/02/20 02:30 04/02/20 02:30 Oxygen Delivery Method Room Air Weight: 93.2 kg Body Mass Index (BMI) 33.1 Intake and Output for Last 24 Hours 03/31/20 04/01/20 04/02/20 23:59 23:59 23:59 Intake Total 3667.31 / 3667.31 1373.33 / 1373.33 Output Total 1550 / 1550 1200 / 1200 Balance 2117.31 / 2117.31 173.33 / 173.33 General: Alert, Oriented x3, Cooperative HEENT: Atraumatic, PERRLA, EOMI, Normocephalic Neck: Supple, No JVD, Negative Carotid Bruits Lungs: Clear to auscultation, Normal air movement Cardiovascular: Regular rate, No murmurs Abdomen: Bowel Sounds Present, Soft, Non Tender, - - dressing Extremities: No edema, Capillary Refill Less than 3 Seconds Skin: No rashes, No breakdown, Incision - CDI Musculoskeletal: No Tenderness to Palpation of Joints or Extremities Neurological: Cranial nerves II-XII grossly intact Psych/Mental Status: Normal Affect, Appropriate Current Medications Acetaminophen (Tylenol) 1,000 mg PO Q6H [facility] Last Admin: 04/02/20 04:21 Dose: 1,000 mg Documented by: Bisacodyl (Dulcolax) 10 mg RECTAL UD PRN PRN Reason: If no BM Hydrocortisone (Hytone) 1 applic TOPICAL TID PRN PRN; Protocol PRN Reason: Discomfort Ibuprofen (Motrin) 600 mg PO Q6H [facility] Last Admin: 04/02/20 02:26 Dose: 600 mg Documented by: Methylergonovine Maleate (Methergine) 0.2 mg IM X1 PRN PRN Reason: Uterine Atony Ondansetron HCl (Zofran) 4 mg IV Q4H PRN PRN PRN Reason: Nausea Prochlorperazine Edisylate (Compazine Iv) 10 mg IV Q6H PRN PRN PRN Reason: NAUSEA Senna/Docusate Sodium (Senokot-S, Sara-Colace) 0 tablet PO DAILY [facility] Last Admin: 04/01/20 10:28 Dose: 2 tablet Documented by: Simethicone (Mylicon) 80 mg PO PCHS PRN PRN Reason: Indigestion/stomach pain Sodium Chloride () 10 ml IV Q12H PRN PRN Reason: IV Last Admin: 04/01/20 14:35 Dose: 10 ml Documented by: Discharge Diet: No Restrictions Discharge Activity: May Not Drive - for 2 weeks or while taking narcotic pain meds., May Shower, May Take a Tub Bath - in 7 days. May resume sexual activity in: 4-6 weeks Additional Activity Instructions:: Nothing in the vagina for 4-6 weeks. You may return to work/school in 6 weeks. Call your doctor if your incision/area has: Continuous Slow Oozing, Sudden Increased Bleeding, Increased Pain/ Swelling, Increased Redness, Foul Smelling Discharge Call your doctor if you observe: Fever of 101 or Higher Suture Line Care: Avoid Pulling/Pushing, Avoid Pinching/Bending Remove Dressing in (days):: 5 Cleanse incision/area with: Soap & Water Home Medications: Medications to take at Discharge Vits [Prenatabs FA ] 1 tab PO DAILY 03/07/20 Docusate Sodium 250 mg PO BID PRN PRN 30 Days #30 cap 04/02/20 Oxycodone [Oxyir] 5 mg PO Q6H PRN PRN 3 Days #10 tab 04/02/20 Following Prescriptions Were Given to Patient: Docusate Sodium 250 mg PO BID PRN PRN 30 Days #30 cap PRN Reason: Constipation Prescription Printed Oxycodone [Oxyir] 5 mg PO Q6H PRN PRN 3 Days #10 tab PRN Reason: Pain Score 6-10/10 Prescription Printed Primary Care Physician: Care Physician,No Primary [Primary Care Provider] - Please Follow Up With: Jaun Terrell MD When: 1-2 week incision check, 6 week Medical Necessity - Tobacco Use Smoking Status: Never smoker Meaningful Use Info Meaningful Use Diagnoses (Choose all that apply): None applicable
[2020-04-02] MEDS: Senna/Docusate Sodium 1 Tablet PO (08:53)
[2020-04-02 10:06] VITALS: BP 117/65; PULSE 88; RESP 18; TEMP 36.7
[2020-04-02 12:09] VITALS: BP 120/68; PULSE 86; RESP 18; TEMP 36.6
--- NOTE | 2020-04-02 14:31 | CASEMGMT ---
Social Work Assessment Labor and Delivery Unit Patient Address: [address] [place] [id number] Phone number: [phone] Date of Referral: 04/02/2020 Time of Referral: [phone] Referred By: Dr. Gissell Stephenson Date of Intervention: 04/02/2020 Time of Intervention: 1210 Reason for Referral: maternal history of anxiety; flat affect during hospital stay History obtained from: medical records and mother of baby (MOB) Jeannette Singletary Household composition: MOB reports to live independently in an apartment, plans to take baby to this home. Father of baby (FOB) does visit, but does not live in the home. Patient's parent/guardian status: JOY is a 25 year old single female, involved with RUCHI Bejarano (age 33) for almost one year; involved since May 2019. MOB denies any safety or abuse history with RUCHI. Baby is the first child for both. Baby to be named Ewa Bejarano, born on 03.31.2020. Medical History: MOB is G2, P0 to 1 after delivering Ewa. MOB with history of one ectopic . care started at 10 weeks gestation and regular thereafter. Baby Ewa born via unplanned caesarian section, weighing 8 pounds 1 ounce, Apgars 9 and 9 at 1 and 5 minutes of life. Educational Status: MOB graduated high school. No reported issues with reading, writing, or learning comprehension. Financial Status: MOB reports has saved money to provided for needs during maternity stay. 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 RUCHI works first shift in a factory. MOB denies any financial concerns at this time. Infant Supplies: MOB reports to have all needed supplies in place including safe sleep spaces in the form of bassinets, cribs, and [id number]. Car seat, clothing, diapers, wipes, and breast pump are secured as well. Childcare/Caregiver(s): MOB and then MOB's mother when MOB returns to work. Transportation: No issues. Programs/Agencies Involved: MOB is active with [facility] for medical and then with WIC. Denies any other agency involvement. MOB verbally agrees to [facility] referral. Children Services/Legal Issues: None reported or indicted. Behavioral Health Issues: Mental Health History: MOB reports depression and anxiety for the last 6 years which started after MOB's grandmother . MOB reports the depression and anxiety has never really gone away. MOB has history of treatment with medications and usually takes in the wintertime. MOB reports to feel her mood was well managed during this and to be feeling good currently. MOB denies any history of suicidal ideation, planning, intent or attempts. No thoughts of harm to others endorsed. Substance Use History: MOB denies any substance use issues, and denies any use during . Family History: None reported. Drug Screens: Maternal screen negative anahi 09.13.2019. Family/Social Stressors: Unplanned but accepted . MOB following with MFM during and concerns for ventriculomegaly noted with need for baby to have follow up with neurology. MOB with unexpected . Support Systems: MOB reports good support in the form of MOB's mom, younger siblings and FOB. MOB plans to stay with her mother for a week or so after discharge, just for added support at home going. Depression/Shaken Baby/Safe Sleeping: Educated to depression and anxiety, risk factors and importance of seeking out help and support. MOB reports she would talk with her mother first, as did this before when had depression. MOB reports her mother is a good support person. Educated to safe sleeping and shaken baby preventions. MOB able to give appropriate response regarding shaken baby prevention. ASSESSMENT: Met with with MOB in room, and FOB sleeping soundly on the couch (did not stir at all while this chart writer in the room and talking). Hand wrote a note inquiring if there were any subjects that did not want to discuss with FOB in room, as well as about topic of domestic violence. MOB had baby laying on pillow on MOB's lap during social work visit. Observed MOB to gaze at baby, smile, finger tip, and talk to baby in a gentle way. MOB reports to have all needed supplies, reports to have adequate support, and to feel a positive connection to the baby. MOB able to identify support system and what would do if depressive symptoms arise. MOB admits if allowed self to think too much about baby's medical issues then anxiety would be present. MOB reports is focusing on the positive that the doctors have told MOB, as well as trying to focus on the present and what MOB knows to be true in the moment. Encouragement given to MOB for working on staying in the moment to help manage anxiety. MOB accepting of [facility] resource list this chart writer provided, as well as packet on depression and anxiety. MOB also agreeable to [facility] referral for added support at home going. Note, MOB's affect was slightly flattened at onset of social work visit, but move more to constricted. MOB showed appropriate emotional responses just not a big range of emotion. MOB smiled when talking about the baby, held good eye contact and appeared to be engaged. MOB admitted was worried about how would feel after surgery, but feeling better than imagined as well as breast feeing is going better, so overall feeling good mood mathis. PLAN: MOB and baby to home today. Community resource information provided. [facility] referral being made. No other services requested or indicated. -CLIFFORD Payna, TOW PICKER
--- NOTE | 2020-04-02 15:10 | CASEMGMT ---
Social Work Labor and Delivery unit Help me grow referral submitted through the [facility] assisted care web-based referral system. [] No other services requested or indicated. -RISHABH Payan, CARPENTER REPAIRER. *Information documented in this note generated via [employer] system*
--- NOTE | 2020-04-02 15:32 | NURSING ---
Reviewed and agree with student charting. used for educational and learning purposes only.
[2020-04-03 13:02] LABS: Pathology Specimen OB SEE PATHOLOGY REPORT
== END 2020-04-02 13:40 | disposition home or self-care (01) | DRG 540 ==
LOC: WPOUT 15:52 → WP 15:52
PROVIDERS: Obstetrics & Gynecology; Admitting Provider Student in an Organized Health Care Education/Training Program; Visit Provider Student in an Organized Health Care Education/Training Program
DX: O76 Abnormality in fetal heart rate and rhythm complicating labor and delivery (principal); O69.81X0 Labor and delivery complicated by cord around neck, without compression, not applicable or unspecified; O99.354 Diseases of the nervous system complicating childbirth; Q75.3 Macrocephaly; O99.824 Streptococcus B carrier state complicating childbirth; Z37.0 Single live birth; Z3A.39 39 weeks gestation of pregnancy; G93.89 Other specified disorders of brain
CPT/HCPCS: 59025; 59050; 81001; 84112; 85025; 85027; 85461; 86850; 86900; 86901; 88307; 90384; 99218; J7120; A4216; G0378; J2405; J2790

== ENCOUNTER 2025-04-23 07:22 | Emergency (ER) | payer MEDICAID, SELFPAY ==
[2025-04-23 07:22] VITALS: BP 120/64; PULSE 67; RESP 14; TEMP 36.6; O2SAT 98; BMI 31.4
--- NOTE | 2025-04-23 07:38 | EX.ED.DYSGE1 ---
HPI History of Present Illness Chief Complaint: Abd Pain Narrative Narrative: Chief complaint and HPI: 30-year-old female with no significant past medical history presents for evaluation of abdominal pain, nausea, vomiting, diarrhea. Onset this morning at 4 AM. Patient states her vomiting and diarrhea is nonbloody. She denies any sick contacts. Mother states her significant other reported that her urine looked cloudy. She denies any fever, chills, shortness of breath, chest pain. Review of systems: See HPI Medications: As listed on the chart Allergies: As listed on the chart PFSH: Per chart Vital signs: As listed on the chart. Reviewed. Physical exam: Gen: A&O x3, NAD Head: Normocephalic, atraumatic Eyes: No sclera icterus, conjunctiva clear ENT: Moist mucous membranes Neck: Trachea midline CV: RRR, no murmurs Resp: Lungs CTA BL, no w/r/c GI: Abd soft, non-distended, non-tender, no r/r/g : No CVA tenderness Musc: Full ROM, no deformity Skin: Warm, dry Neuro: Alert, oriented, grossly intact, sensation intact Psych: Cooperative, appropriate mood and affect [facility] Medical History (Updated 03/31/20 @ 07:53 by Batool Butt CNM) 38 weeks gestation of Labor, false (Gilliam-Mina), antepartum 37 weeks gestation of Decreased movement 35 weeks gestation of Home Medications ?Medication ?Instructions ?Recorded ?Last Taken ?Type vits,calcium no.78-iron 1 tab PO DAILY 03/07/20 1 Day Ago History fumarate-folic acid 29 mg-1 mg ~03/29/20 tablet Allergy/AdvReac Type Severity Reaction Status Date / Time No Known Allergies Allergy Verified 03/16/20 23:20 Social History Smoking Status: Never smoker EXAM Physical Exam Const Vital Signs: 04/23/25 07:22 Temperature 98 F Temperature Source Temporal Pulse Rate 67 Respiratory Rate 14 Blood Pressure 120/64 Blood Pressure Mean 82 Pulse Ox 98 Oxygen Delivery Method Room Air MDM MDM MDM Narrative Medical decision making narrative: 30-year-old female with no significant past medical history presents for evaluation of abdominal pain, nausea, vomiting, diarrhea. Onset this morning at 4 AM. Patient states her vomiting and diarrhea is nonbloody. She denies any sick contacts. On presentation, patient no acute distress. Nontoxic-appearing. Vital stable. Differential diagnosis includes but is not limited to viral illness, gastroenteritis, UTI, suspect less likely gastritis, biliary pathology, urolithiasis. NS bolus, Toradol, Zofran ordered for symptoms. Laboratory workup ordered. Given that patient's abdomen is benign, will forego CT abdomen pelvis at this time and last labs indicate otherwise. CBC without leukocytosis or anemia. CMP unremarkable except for mild alkaline phosphatase at 109. This can be seen with nausea and vomiting. Lipase unremarkable. UA negative for UTI or blood. No ketones. On reevaluation, patient has had no vomiting here in the emergency department. At this point in time, no clear etiology for patient's symptoms. I do suspect this is likely viral in nature. However given onset has only been several hours, may be early presentation of other pathology. Patient stable to discharge home. Recommend drinking plenty of fluids. Keith foods. Return back to the ED if symptoms change or worsen. Follow-up with PCP. Will give prescription for Zofran. Impression: 1. Nausea and vomiting 2. Diarrhea 3. Abdominal pain 4. Suspect viral gastroenteritis Lab Data Labs: Laboratory Results - last 24 hr 04/23/25 04/23/25 07:49 08:15 WBC 8.0 RBC 4.75 Hgb 12.6 Hct 38.4 MCV 80.8 L MCH 26.5 L MCHC 32.8 RDW Std Deviation 38.5 RDW Coeff of Susan 13.1 Plt Count 307 MPV 9.6 Immature Gran % (Auto) 0.300 Neut % (Auto) 70.4 H Lymph % (Auto) 20.0 [place] % (Auto) 6.0 Eos % (Auto) 2.8 Baso % (Auto) 0.5 Absolute Neuts (auto) 5.6 Absolute Lymphs (auto) 1.59 Nucleated RBC % 0 Sodium 137 Potassium 3.9 Chloride 105 Carbon Dioxide 21.0 Anion Gap 11 BUN 11 Creatinine 0.78 Estim Creat Clear Calc 117.97 Est GFR (MDRD) Non-Af 105 BUN/Creatinine Ratio 13.5 Glucose 92 Calcium 8.4 Total Bilirubin 0.72 AST 15 ALT 11 Alkaline Phosphatase 109 H Total Protein 7.1 Albumin 4.0 Globulin 3.1 Albumin/Globulin Ratio 1.3 Lipase 28 Urine Color Yellow Urine Clarity Sl. Cloudy Urine pH 6.5 Ur Specific [place] 1.010 Urine Protein 15 H Urine Glucose (UA) Normal Urine Ketones Negative Urine Occult Blood Negative Urine Nitrite Negative Urine Bilirubin Negative Urine Urobilinogen Normal Ur Leukocyte Esterase Negative Urine RBC 0 SEEN Urine WBC 0 SEEN Ur Squamous Epith Cells 0-5 SEEN Urine Bacteria 1+ Urine Mucus 0 SEEN Urine Test Negative Discharge Plan Triage Chief Complaint: Abd Pain ED Provider: Gigi Marks Dx/Rx/DC Orders Prescriptions: No Action vit,rupal [id number] 1 TABLET tablet 1 tab PO DAILY Primary Care Provider: JOSE MCMAHON Referrals: Care Physician,No Primary [Non-Staff, Medical] Print Language: Amharic
[2025-04-23 07:55] LABS: Mucous, Urine 0 SEEN /hpf (<or=2+); Red Blood Cells-Urine 0 SEEN /hpf (0-5)
[2025-04-23] MEDS: 0.9% Normal Saline (1000mL) 1,000 ML 999 ML IV (08:12)
[2025-04-23 08:26] LABS: Color, Urine Yellow (Yellow); Glucose, Dipstick Normal (Normal); Ketone-Dipstick Negative (Negative); Leukocyte Esterase-Dipstick Negative /ul (Negative); Nitrite-Dipstick Negative (Negative); Occult Blood-Urine Negative /ul (Negative); Protein-Dipstick 15 mg/dl (Negative); Specific Gravity, Urine 1.010 (1.002-1.030); Urine Bilirubin Dipstick Negative (Negative)
[2025-04-23 08:33] LABS: Squamous Epithelial Cells - UA 0-5 SEEN /hpf (5-10)
[2025-04-23 08:34] LABS: Internal QC Validated? YES +Cl - CLEAR BKGD; Pregnancy, Urine Negative Negative; Record Kit Lot#,Urine Preg 0000964736
[2025-04-23 08:38] LABS: Hematocrit 38.4 % (37-47); Hemoglobin 12.6 g/dL (12.0-15.0); Immature Granulocytes Count 0.020 X10^3/uL (0.0-0.0); Mean Corp Hgb Conc 32.8 g/dL (32-36); Mean Corpuscular Volume 80.8 fL (81-99); Mean Platelet Vol. 9.6 fl (6.2-12.0); NRBC Flagged by Analyzer 0 % (0-5); Platelet Count 307 K/mm3 (150-450); RBC Distribution Width CV 13.1 % (11.6-14.6); RBC Distribution Width SD 38.5 fl (35.1-43.9); Red Blood Count 4.75 M/mm3 (4.2-5.4); White Blood Count 8.0 K/mm3 (4.4-11.0)
[2025-04-23 08:56] LABS: AST(SGOT) 15 U/L (<=31); Alanine Aminotransfer ALT/SGPT 11 U/L (<=34); Albumin, Serum 4.0 g/dL (3.5-5.0); Alkaline Phosphatase 109 U/L (35-104); Anion Gap 11 (5-15); BUN 11 mg/dL (4-19); BUN/Creat Ratio 13.5 RATIO (10-20); Calcium,Total 8.4 mg/dL (7.6-11.0); Carbon Dioxide 21.0 mmol/L (21.0-32.0); Chloride 105 mmol/L (98-108); Estimated Creatinine Clearance 117.97 ml/min (50-250); Globulin 3.1 g/dL (2.2-4.2); Glucose 92 mg/dL (70-99); Lipase 28 U/L (13-75); Potassium 3.9 mmol/L (3.3-5.1)
[2025-04-23 09:28] VITALS: BP 108/66; PULSE 50; RESP 18; TEMP 37; O2SAT 98
== END 2025-04-23 09:33 | disposition home or self-care (01) ==
PROVIDERS: Emergency Provider Surgery; Visit Provider Surgery
DX: R10.9 Unspecified abdominal pain (principal); R19.7 Diarrhea, unspecified; R11.2 Nausea with vomiting, unspecified
CPT/HCPCS: 80053; 81001; 81025; 83690; 85025; 96361; 96374; 96375; 99282; A4216; J2405